=== PATIENT | male | born 1995 | race African-American/Black ===

== ENCOUNTER 2019-10-30 21:41 | Emergency (ER) | payer OTHER ==
[~2019-10-30] VITALS: Ht 180.3 cm; Wt 81.6 kg
[2019-10-30] MEDS ORDERED: NABUMETONE750 MG PO (22:53)
== END 2019-10-30 22:57 | disposition home or self-care (01) ==
LOC: ER 21:41
DX: S30.0XXA Contusion of lower back and pelvis, initial encounter (principal); S70.01XA Contusion of right hip, initial encounter; M54.5 Low back pain; M25.551 Pain in right hip; W10.8XXA Fall (on) (from) other stairs and steps, initial encounter; Y93.89 Activity, other specified; Y92.038 Other place in apartment as the place of occurrence of the external cause; Y99.8 Other external cause status